=== PATIENT | female | born 1995 | race Asian ===

== ENCOUNTER 2020-08-16 13:16 | Outpatient (CLI) | payer MEDICAID ==
[2020-08-16] MEDS ORDERED: LACTATED RINGERS 1,000 ML IV SCH (14:15)
[2020-08-16 14:20] VITALS: BP 118/66
[2020-08-16 14:32] LABS: Bacteria,Urine 3+ /HPF (Negative); Bilirubin,Urine NEG (Negative); Blood,Urine NEG (Negative); Color,Urine Yellow (Yellow); Mucus,Urine 3+ /HPF
[2020-08-16] MEDS ORDERED: TERBUTALINE 1 MG/1 ML INJ SUB-Q SCH (15:00)
[2020-08-16] MEDS ORDERED: FLUCONAZOLE 100 MG TAB PO ONE (16:00)
== END 2020-08-16 16:29 | disposition home or self-care (01) ==
LOC: TRG 13:16 → APU 14:04 → TRG 16:29
PROVIDERS: ATTEND Obstetrics & Gynecology
DX: O26.892 Other specified pregnancy related conditions, second trimester (principal); R10.30 Lower abdominal pain, unspecified; Z3A.26 26 weeks gestation of pregnancy
CPT/HCPCS: 59025; 81001; 87086

== ENCOUNTER 2020-08-30 16:49 | Outpatient (CLI) | payer MEDICAID | END 2020-08-30 19:20 | disposition home or self-care (01) | LOC: LAB 16:49 → APU 18:45 → LAB 19:20 | PROVIDERS: ATTEND Obstetrics & Gynecology | DX: O26.893 Other specified pregnancy related conditions, third trimester (principal); Z67.41 Type O blood, Rh negative; Z3A.28 28 weeks gestation of pregnancy | CPT/HCPCS: 59025; 86850; 86900; 86901; 96372; J2790 ==

== ENCOUNTER 2021-09-07 09:43 | Emergency (ER) | payer MEDICAID | END 2021-09-07 12:58 | disposition left against medical advice (07) | LOC: ED 09:43 | DX: A05.9 Bacterial foodborne intoxication, unspecified (principal); Z53.21 Procedure and treatment not carried out due to patient leaving prior to being seen by health care provider ==